=== PATIENT | female | born 1955 | race Two or more races ===

== ENCOUNTER → 2018-01-06 | Outpatient (CLI) | payer OTHER ==
[2015-12-15 07:57] VITALS: BP 177/73
[~2018-01-06] MED LIST: CALC-74 PO; METF10007 PO
--- NOTE | 2018-01-07 10:28 | RAD ---
DATE: 01/06/2018 EXAM: DIGITAL SCREEN BILAT W/CAD HISTORY: Routine screening COMPARISON: 10/07/2016 This study was interpreted with the benefit of Computerized Aided Detection (CAD). Breast Density: FATTY The breast parenchyma is primarily fatty replaced. Breast parenchyma level density A. FINDINGS: There is an unchanged oval-shaped 2.6 cm mass in the lateral aspect of the right breast. No new or enlarging breast densities are seen. No suspicious microcalcifications are evident. IMPRESSION: Stable mammograms without evidence of malignancy. BI-RADS CATEGORY: 2 BENIGN FINDING(S) RECOMMENDED FOLLOW-UP: 12M 12 MONTH FOLLOW-UP PQRS compliance statement: Patient information was entered into a reminder system with a target due date for the next mammogram. Mammography is a sensitive method for finding small breast cancers, but it does not detect them all and is not a substitute for careful clinical examination. A negative mammogram does not negate a clinically suspicious finding and should not result in delay in biopsying a clinically suspicious abnormality. "Our facility is accredited by the [employer] Mammography [employer]."
== END | disposition home or self-care (01) ==
LOC: MAMMO 14:41
PROVIDERS: ATTEND Family Medicine
DX: Z12.31 Encounter for screening mammogram for malignant neoplasm of breast (principal)
CPT/HCPCS: 77067

== ENCOUNTER → 2018-09-22 | Outpatient (CLI) | payer OTHER ==
[2015-12-15 07:57] VITALS: BP 177/73
--- NOTE | 2018-09-22 15:06 | RAD ---
MR#: [id number] Date of Study: 09/22/2018 Ordering Physician: CHARLES DIAZ, Referring Physician: CHARLES DIAZ, Tech: AMAIRANI Issa, RDMS, RVT APPROVED REPORT Patient Location : OUT-PATIENT Indications Lower Extremity Pain : Bilateral Lower Extremity Edema : Bilateral Varicose Veins Risk Factors Obesity Greater Saphenous Veins (GSV) Significant venous relux noted in the LEFT GSV at the following levels : Superficial Femoral Junction Findings Grayscale images of the bilateral saphenofemoral junctions do not reveal any obvious evidence of thro mbus. The right great saphenous vein was not visualized. There are multiple venous varicosities along the right medial aspect of the thigh and calf. There is reflux noted in the superficial varicosities at approximately 2.5 seconds. There is significant edema limiting the study. The left great saphenous vein measures approximate 4.6 mm and has a reflux time of 2.4 seconds. Signi ficant edema is also noted again on the left side. Multiple superficial varicosities noted on the left side with positive spectral and color Doppler jennifer dence of reflux. Technically limited study due to large body habitus and significant lower ext edema. Bilateral lesser saphenous veins do not show any evidence of reflux. Critical Notification Critical Value: No <Conclusion> 1. Positive for reflux in the left great saphenous vein. 2. Multiple bilateral superficial venous varicosities noted with reflux of 2.5 seconds 3. Right great saphenous vein not well visualized. Signed by : Charles Diaz, Electronically Approved : 09/22/2018 15:05:20
== END | disposition home or self-care (01) ==
LOC: US 12:30
PROVIDERS: ATTEND Internal Medicine Cardiovascular Disease
DX: I83.893 Varicose veins of bilateral lower extremities with other complications (principal); I87.2 Venous insufficiency (chronic) (peripheral)
CPT/HCPCS: 93925; 93970

== ENCOUNTER → 2018-12-17 | Outpatient (CLI) | payer OTHER ==
[2015-12-15 07:57] VITALS: BP 177/73
[~2018-12-17] MED LIST changes: +PERFLUTREN PROTEIN-A MICROSPHR 0.22 MG/ML 3 ML VIAL. IV ONE
--- NOTE | 2018-12-17 12:20 | CARD ---
MR#: [id number] Date of Study: 12/17/2018 Ordering Physician: CHARLES DIAZ, Referring Physician: CHARLES DIAZ, Tech: Frida Montiel [facility] APPROVED REPORT EXAM: Two-dimensional and M-mode echocardiogram with Doppler and color Doppler. Other Information Quality : Technically LimitedHR: 65bpm Rhythm : NSRTechnically limited study due to body habitus. INDICATION Dyspnea Echo Enhancing Agent Indication: Endocardial border delineation Agent/Amount Used: Optison 1mL 2D DIMENSIONS Left Atrium(2D)4.4 (1.6-4.0cm)LVOT Diameter1.9 (1.8-2.4cm) Aortic Valve AoV Peak Van.132.0cm/sAoV VTI30.8cm AO Peak GR.7.0mmHgLVOT Peak Van.90.0cm/s LVOT VTI 23.16cmAO Mean GR.5mmHg REGGIE (VMAX)1.32cs8UNS (VTI)2.10cm2 Mitral Valve MV E Cmfrajeg84.6cm/sMV DECEL [id number] MV A Gjxdsukj89.8cm/sMV QIV76vs E/A Ratio0.9MVA (PHT)4.16cm2 Pulmonary Valve PV Peak Vrdlvhrn13.9cm/sPV Peak Grad.2mmHg Pulmonary Vein S1 Wdznzwtu42.3cm/sD2 Xqxpttup07.7cm/s PVa [id number] LEFT VENTRICLE The left ventricle is normal size. There is normal left ventricular wall thickness. The left ventricu lar systolic function is normal. The Ejection Fraction is 55-60%. Unable to accurately access regiona l wall motion abnormalities with technically difficult exam. Transmitral Doppler flow pattern is Grad e I-abnormal relaxation pattern. RIGHT VENTRICLE The right ventricle is normal size. There is normal right ventricular wall thickness. The right ventr icular systolic function is normal. ATRIA The left atrium is mildly dilated. The right atrium size is normal. The interatrial septum is intact with no evidence for an atrial septal defect or patent foramen ovale as noted on 2-D or Doppler imagi ng. AORTIC VALVE The aortic valve is not well visualized. Doppler and Color Flow revealed no significant aortic regurg itation. There is no significant aortic valvular stenosis. MITRAL VALVE The mitral valve is normal in structure and function. There is no evidence of mitral valve prolapse. There is no mitral valve stenosis. Doppler and Color-flow revealed trace mitral regurgitation. TRICUSPID VALVE The tricuspid valve is normal in structure and function. Doppler and Color Flow revealed no tricuspid valve regurgitation noted. There is no tricuspid valve prolapse or vegetation. PULMONIC VALVE The pulmonic valve is not well visualized. GREAT VESSELS The aortic root is normal in size. The ascending aorta is normal in size. The IVC was not visualized. PERICARDIAL EFFUSION There is no evidence of significant pericardial effusion. Critical Notification Critical Value: No <Conclusion> The left ventricular systolic function is normal. The Ejection Fraction is 55-60%. Transmitral Doppler flow pattern is Grade I-abnormal relaxation pattern. Trace mitral regurgitation. There is no evidence of significant pericardial effusion. Signed by : Javon Mcmillan, Electronically Approved : 12/17/2018 12:20:17
== END ==
LOC: ECHO 10:15
PROVIDERS: ATTEND Internal Medicine Cardiovascular Disease
DX: I34.0 Nonrheumatic mitral (valve) insufficiency (principal); I50.30 Unspecified diastolic (congestive) heart failure
CPT/HCPCS: C8929; Q9956

== ENCOUNTER → 2019-01-13 | Outpatient (CLI) | payer OTHER ==
[2015-12-15 07:57] VITALS: BP 177/73
[~2019-01-13] MED LIST changes: -PERFLUTREN PROTEIN-A MICROSPHR 0.22 MG/ML 3 ML VIAL. IV ONE
--- NOTE | 2019-01-14 15:38 | RAD ---
DATE: 01/13/2019 EXAM: DIGITAL SCREEN BILAT W/CAD HISTORY: Routine screening COMPARISON: 10/07/2017, 01/06/2018 mammographic exams This study was interpreted with the benefit of Computerized Aided Detection (CAD). Breast Density: SCATTERED The breast parenchyma shows scattered fibroglandular densities. Breast parenchyma level B. FINDINGS: Mass involving the right upper-outer breast is stable. No suspicious calcifications or distortion. No new mass. IMPRESSION: Stable BI-RADS CATEGORY: 1 NEGATIVE RECOMMENDED FOLLOW-UP: 12M 12 MONTH FOLLOW-UP PQRS compliance statement: Patient information was entered into a reminder system with a target due date for the next mammogram. Mammography is a sensitive method for finding small breast cancers, but it does not detect them all and is not a substitute for careful clinical examination. A negative mammogram does not negate a clinically suspicious finding and should not result in delay in biopsying a clinically suspicious abnormality. "Our facility is accredited by the [employer] Mammography Program."
== END | disposition home or self-care (01) ==
LOC: MAMMO 12:17
PROVIDERS: ATTEND Family Medicine
DX: Z12.31 Encounter for screening mammogram for malignant neoplasm of breast (principal); N63.11 Unspecified lump in the right breast, upper outer quadrant
CPT/HCPCS: 77067

== ENCOUNTER → 2019-05-13 | Outpatient (CLI) | payer OTHER ==
[2015-12-15 07:57] VITALS: BP 177/73
--- NOTE | 2019-05-14 08:36 | RAD ---
EXAM: Lumbar spine, 3 views. HISTORY: Pain. COMPARISON: 11/28/2015. FINDINGS: 3 views of the lumbar spine are obtained. There is grade 1 anterolisthesis of L5 on S1. There is degenerative endplate remodeling and facet arthropathy at all levels. There is slight disc space narrowing predominantly at L3-L4. IMPRESSION: 1. Multilevel degenerative change involving the lumbar spine. 2. Grade 1 anterolisthesis of L5 on S1. Electronically signed by: Hazel Jacinto MD (05/14/2019 8:33 AM) [id number]
== END | disposition home or self-care (01) ==
LOC: RAD 16:18
PROVIDERS: ATTEND Family Medicine
DX: M47.816 Spondylosis without myelopathy or radiculopathy, lumbar region (principal); M48.061 Spinal stenosis, lumbar region without neurogenic claudication
CPT/HCPCS: 72100

== ENCOUNTER → 2020-04-05 | Outpatient (CLI) | payer OTHER ==
[2015-12-15 07:57] VITALS: BP 177/73
--- NOTE | 2020-04-05 21:44 | KCIC ---
C-spine 4 views INDICATION: Neck pain and right radiculopathy. TECHNIQUE: AP, odontoid view, lateral view and swimmer's lateral views of the cervical spine were obt ained. FINDINGS: Anatomic alignment of the cervical spine with normal. No acute fracture or aggressive appearing bony lesions are seen. There is ossification along the anterior longitudinal ligament bridging C4 and C5. Disc spaces are preserved. Facets are in anatomic alignment. Lateral masses of C1 appear to align hank ropriately on C2 on the open mouth odontoid view. Soft tissues show mild fullness in the prevertebral soft tissues at the C5-C6 level, nonspecific. Otherwise they are unremarkable. 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 No fracture, malalignment or aggressive bony les ions seen. If more detailed evaluation is desired, soft tissue neck with IV contrast or a C-spine MRI could be considered in further evaluation. Electronically signed by: Sharifa Larson MD (04/05/2020 9:42 PM) [facility] [place]
== END ==
LOC: KCIC 15:43
PROVIDERS: ATTEND Family Medicine
DX: M54.12 Radiculopathy, cervical region (principal); M54.2 Cervicalgia
CPT/HCPCS: 72040

== ENCOUNTER → 2020-06-30 | Outpatient (CLI) | payer OTHER ==
[2015-12-15 07:57] VITALS: BP 177/73
--- NOTE | 2020-06-30 16:42 | KCIC ---
EXAM: Lumbar spine MRI without contrast. HISTORY: Pain. TECHNIQUE: Multiplanar, multisequence magnetic resonance imaging of the lumbar spine was performed wi thout contrast. COMPARISON: None. FINDINGS: There is a transitional lumbosacral segment. This considered S1 for this dictation. There i s a rudimentary disc at S1-S2. There is mild lumbar hyperlordosis. There is minimal grade 1 anterolis thesis of L4 on L5 and L5 on S1, measuring 2 mm. There is degenerative endplate remodeling with disc space narrowing and osteophytosis primarily at L3-L4. There are endplate Schmorl's nodes at L3-L4 and L4-L5. There is no fracture or suspicious osseous lesion. The conus terminates at L1. There is a sma ll right renal cyst, partially included on the [id number]-ss-omgi. Follow up is not routinely performed fo r simple cysts. At L1-L2, there is no stenosis. At L2-L3, there is a disc bulge and endplate remodeling. There is mild bilateral facet arthropathy. T here is hypertrophy of the ligamentum flavum. There is minimal central canal stenosis. At L3-L4, there is a shallow broad-based left paracentral to foraminal disc protrusion superimposed o n a disc bulge and left lateral predominant endplate remodeling. There is mild right and moderate lef t facet arthropathy. There is hypertrophy of the ligamentum flavum. There is mild central canal steno sis and narrowing of the left lateral recess with abutment of the traversing left L4 nerve root. At L4-L5, there is a disc bulge and endplate remodeling. There is mild bilateral facet arthropathy. T here is mild left foraminal stenosis. At L5-S1, there is endplate remodeling. There is mild bilateral facet arthropathy. There is no stenos is. IMPRESSION: Multilevel degenerative change involving the lumbar spine, described in detail above. Thi s is associated with minimal central canal stenosis at L2-L3, mild central canal stenosis and narrowi ng of the left lateral recess with abutment the traversing left L4 nerve root at L3-L4, and mild left foraminal stenosis at L4-L5. Electronically signed by: Hazel Jacinto MD (06/30/2020 4:39 PM) [id number]
== END ==
LOC: KCIC MRI 12:44
PROVIDERS: ATTEND Family Medicine
DX: M47.27 Other spondylosis with radiculopathy, lumbosacral region (principal); R29.898 Other symptoms and signs involving the musculoskeletal system
CPT/HCPCS: 72148

== ENCOUNTER → 2020-09-22 | Outpatient (CLI) | payer OTHER ==
[2015-12-15 07:57] VITALS: BP 177/73
--- NOTE | 2020-09-22 13:35 | PDOC1 ---
INITIAL PAIN CONSULT DATE OF SERVICE: DOS: DATE: 09/22/20 TIME: 13:29 CHIEF COMPLAINT: Chief Complaint: Low back and left lower extremity pain HISTORY OF PRESENT ILLNESS: 65-year-old female presents for evaluation of low back and left lower extremity pain for many years worse over the past 6 months or so not the result of any specific injury or accident that she is aware of is getting worse with activity and walking and standing. Patient reports pain the low back rating to left lower extremity posterior gluteus lateral thigh anterior thigh medial thigh some in the groin and the medial lower leg as well patient reports is worse with walking standing bending stooping changing positions or lifting items. Patient reports better with sitting or laying down but still painful and wakes her from sleep least once or twice a night. Patient reports is not effective bowel bladder control does affect her ability to walk more than about 5 to 10 minutes standing on her feet becomes much more difficult. Patient scribes the pain is constant aching shooting and stabbing in the left lower extremity and again worse with ambulation. Patient has report injections from her PMR physician and therapy exercises and also doing stretching and strengthening on her own but is not decreasing the pain significantly. Patient is currently taking [id number] Tylenol without significant reduction in pain as well. Patient reports a loss of motor function with significant fatigability of the left lower extremity with walking and standing. Patient did have an MRI scan of the lumbar spine showing multilevel degenerative changes worse at L3-4 with a shallow broad-based left paracentral to foraminal disc protrusion and disc bulge superimposed with mild central canal stenosis and narrowing the left lateral recess with abutment of the traversing left L4 nerve root. PAST MEDICAL HISTORY: PMH: Type 2 diabetes, obesity PREVIOUS SURGERIES: Past Surgical Hx: Cholecystectomy, ectopic CURRENT MEDICATIONS: Current Meds: Active Scripts Medications Dose Route/Sig Max Daily Dose Days Date Category Metformin Hcl 1,000 Mg Tablet 1 Tab PO BID 12/15/15 Reported Antacid Chewable Tablet (Calcium Carbonate/Mag Hydrox) 1 Each Tab.chew 1 Each PO PRN 12/15/15 Reported ALLERGIES; Allergies: Coded Allergies: No Known Drug Allergies (Unverified , 12/15/15) FAMILY HISTORY: Family Hx: No major medical problems or conditions that she is aware of. SOCIAL HISTORY: Social Hx: Patient drinks alcohol only rarely, does not smoke, does not use any illegal illicit recreational drugs is with her spouse works as a db2 developer and lives locally in [facility]. REVIEW OF SYSTEMS: ROS: Positive for those items mentioned in history of present illness, all systems are reviewed, otherwise negative ,and are complete full and well-documented on patient's chart. PHYSICAL EXAM: VS: Blood pressure is 123/66 pulse 73 respirations which is 98.2 F height 5 feet 2 inches weight 294 pounds PE: PHYSICAL EXAMINATION: GENERAL: The patient is awake, alert, oriented, appropriate, very pleasant demeanor HEENT: Shows normocephalic, atraumatic. Extraocular movements are intact and symmetrical. Oral cavity: Mucous membranes moist and pink. Dentition is intact. NECK: Shows anterior throat supple without palpable lymphadenopathy noted. Swallow reflex symmetrical. CHEST: Shows normal on inspection. Breath sounds are clear bilaterally, distant but no rales or rhonchi. HEART: Shows S1, S2 clear. No murmurs auscultated. ABDOMEN: Soft, nontender, nondistended, obese. No palpable organomegaly is noted. No rebound or guarding demonstrated. BACK: Shows spine grossly in the midline. Normal-appearing cervical lordotic curvature. There is slightly increased thoracic kyphosis, some minor flattening of the lumbar lordotic curvature. Lumbar paraspinous muscles show symmetrical on inspection, on palpation shows some moderate tenderness diffusely throughout the upper, middle and lower distribution of the paraspinous muscles bilaterally and also into the lower thoracic paraspinous musculature, firm and tender, but without specific trigger points, without radiation of pain. The patient has good rotational motion of the lumbar spine, both laterally as well as extension and flexion without significant difficulty. No tenderness over the spinous processes, sacrum or sacroiliac regions. EXTREMITIES: Lower extremities show deep tendon reflexes 1 in the patellar and tendo calcaneus tendons. Motor exam is 5 on a scale of 5 with right dorsiflexion, extension, quadriceps and hamstring flexion and 4/5 on the left. Peripheral pulses are 1+ posterior tibial. No peripheral edema is noted bilaterally. Lower extremities are warm and dry to touch, equal in color and appearance. Straight leg raise noted to be positive on the left at approximate 35 degrees, decreased with knee flexion, right side is negative. Gaenslen's and Zackery's maneuvers are negative bilateral as well. The patient is able to stand, stand her toes that significant difficulty does favor the left lower extremity with ambulation not use any assistive devices however. SKIN: Shows warm and dry, good turgor. No edema. No sores, rashes or bruising throughout. IMPRESSION: Impression: 65-year-old female with long history low back and left lower extremity pain and radicular fashion MRI scan lumbar spine as noted Obesity Diabetes Plan: Options discussed the patient including continued physical therapy was medication management and interventional techniques. Patient would like to proceed interventional techniques as she is seen physical medicine rehab and is doing exercises currently. We discussed a lumbar epidural steroid injections description as well as anatomical models to describe the procedure. Patient will wait for preauthorization with insurance provider have her return for a translaminar approach L3-4 level lumbar epidural steroid injection with fluoroscopic guidance. In the meantime, patient to continue with stretching strength exercise as well as oral analgesics as currently. NING STUART MD Sep 22, 2020 13:35
== END | disposition home or self-care (01) ==
LOC: PNCL 09:17
PROVIDERS: ATTEND Anesthesiology
DX: M54.5 Low back pain (principal); M79.605 Pain in left leg; E11.9 Type 2 diabetes mellitus without complications; E66.9 Obesity, unspecified; M19.90 Unspecified osteoarthritis, unspecified site; I10 Essential (primary) hypertension; Z90.49 Acquired absence of other specified parts of digestive tract; Z98.890 Other specified postprocedural states; Z79.899 Other long term (current) drug therapy
CPT/HCPCS: G0463

== ENCOUNTER → 2020-10-06 | Outpatient (CLI) | payer OTHER ==
[2015-12-15 07:57] VITALS: BP 177/73
--- NOTE | 2020-10-06 08:51 | RAD ---
EXAM: Abdomen sonogram. HISTORY: Pain. TECHNIQUE: Sonographic imaging of the abdomen was performed. COMPARISON: None. FINDINGS: The exam is limited due to patient body habitus and bowel gas. The liver is normal in size. There is hepatic steatosis. No focal hepatic lesion is seen. The gallbladder is surgically absent. T he common bile duct is normal in caliber. The kidneys are normal in size. There is a 2.1 cm simple ap pearing right renal cyst. Follow-up is not routinely performed for simple cysts. The spleen is normal in size. The pancreas is predominantly obscured due to bowel gas. The aorta is normal in caliber. Th e inferior vena cava is patent. IMPRESSION: 1. Hepatic steatosis. 2. 2.1 cm simple appearing right renal cyst. 3. Surgically absent gallbladder. Electronically signed by: Hazel Jacinto MD (10/06/2020 8:49 AM) [id number]
== END ==
LOC: US 06:19
PROVIDERS: ATTEND Family Medicine
DX: K76.0 Fatty (change of) liver, not elsewhere classified (principal); Z90.49 Acquired absence of other specified parts of digestive tract
CPT/HCPCS: 76700

== ENCOUNTER → 2020-10-13 | Outpatient (CLI) | payer OTHER ==
[2015-12-15 07:57] VITALS: BP 177/73
[~2020-10-13] MED LIST changes: +IOHEXOL 180 MG/ML 10 ML VIAL. ONE; +methylPREDNISolone ACETATE 40 MG/ML VIAL. ONE; +methylPREDNISolone ACETATE 80 MG/ML VIAL. ONE
--- NOTE | 2020-10-13 09:53 | PDOC ---
Progress Note - Pain Clinic Date of Service: DOS: DATE: 10/13/20 TIME: 09:51 Diagnosis: Dx: Lumbar radiculopathy with lumbar degenerative disease and lumbar spinal stenosis History or Present Illness: HPI: 65-year-old female returns for follow-up status post initial evaluation returning with complaints of low back and left lower extremity pain in the posterior gluteus posterior lateral thigh posterior anterior thigh anteromedial thigh into the medial knee patient reports is worse with walking standing changing positions rates it as severe tingling and dull in the leg but aching and burning in the low back patient reports a 10 on scale 10 at its worst over the past week 10 on average and a 5 and his least and is a 10 today. Patient reports no new motor or sensory deficits worse with change positions generally awakens her from sleep about once or twice every night patient reports no bowel or bladder incontinence as well. Physical Exam: VS: Blood pressure is 125/69 pulse 67 respirations 18 temperature 98.3 F weight is 298 pounds PE: PHYSICAL EXAMINATION: GENERAL: The patient is awake, alert, oriented, appropriate, very pleasant in demeanor HEENT: Shows normocephalic, atraumatic. Extraocular movements are intact and symmetrical. Oral cavity: Mucous membranes moist and pink. Dentition is intact. NECK: Shows anterior throat supple without palpable lymphadenopathy noted. Swallow reflex symmetrical. CHEST: Shows normal on inspection. Breath sounds are clear bilaterally, distant but no rales or rhonchi. HEART: Shows S1, S2 clear. No murmurs auscultated. ABDOMEN: Soft, nontender, nondistended, obese. No palpable organomegaly is noted. BACK: Shows spine grossly in the midline. Normal-appearing cervical lordotic curvature. There is slightly increased thoracic kyphosis, some minor flattening of the lumbar lordotic curvature. Lumbar paraspinous muscles show symmetrical on inspection, on palpation shows some moderate tenderness diffusely throughout the upper, middle and lower distribution of the paraspinous muscles without specific trigger points, without radiation of pain. The patient has good rotat ional motion of the lumbar spine, both laterally as well as extension and flexion without significant difficulty. EXTREMITIES: Lower extremities show deep tendon reflexes 1+ in the patellar and tendo calcaneus tendons. Motor exam is 4 on a scale of 5 with right dorsiflexion, extension, quadriceps and hamstring flexion and 5/5 on the left. Peripheral pulses are 1 posterior tibial. No peripheral edema is noted bilaterally. Lower extremities are warm and dry to touch, equal in color and appearance. SKIN: Shows warm and dry, good turgor. No edema. No sores, rashes or bruising throughout. Procedure: Procedure: Options were discussed with the patient. Patient's old chart was reviewed as her current medication regimen updated current review of systems updated today as well. We will proceed with a lumbar epidural steroid injection stable fluoroscopic guidance. Risks were discussed including but not limited to: Bleeding, infection, possibility of epidural hematoma and subsequent neurological compromise, dural puncture, headaches, spinal cord and/or nerve damage, side effects of steroid medication, and poor results regarding pain control. Patient understands and wished to proceed. Patient return to the clinic in approximate 2 weeks for follow-up, was counseled as return appointment activity level and side effects to be aware of. Medication Injected: Med Injected: Procedure is lumbar epidural steroid injection under local anesthetic using sterile prep and drape at the L3-4 level using C-arm fluoroscopic guidance in both AP and lateral views medications injected is 120 mg Depo-Medrol +10mL preservative-free normal saline and 2 mL contrast- condition at discharge is stable patient tolerated procedure well had no complications. Condition at Discharge: Condition at Discharge: Condition at discharge stable, patient already the procedure well and had no complications. NING STUART MD Oct 13, 2020 09:53
--- NOTE | 2020-10-13 09:54 | PDOC4 ---
Procedure Note: ICD 10 Code: ICD 10 Code: M51.16 M4 8.07 Procedure Note: Patient was consented for lumbar epidural steroid injection with fluoroscopic guidance. Risks were discussed including but not limited to: Bleeding, infection, possibility of epidural hematoma and subsequent neurological compromise, dural puncture, headaches, spinal cord and/or nerve damage, side effects of steroid medication, and poor results regarding pain control. Patient understands and wished to proceed. Procedure is lumbar epidural steroid injection under local anesthetic using sterile prep and drape at the L3-4 level using C-arm fluoroscopic guidance in both AP and lateral views medications injected is 120 mg Depo-Medrol +10mL preservative-free normal saline and 2 mL contrast- condition at discharge is stable patient tolerated procedure well had no complications. NING STUART MD Oct 13, 2020 09:54
== END | disposition home or self-care (01) ==
LOC: PNCL 08:54
PROVIDERS: ATTEND Anesthesiology
DX: M51.16 Intervertebral disc disorders with radiculopathy, lumbar region (principal); M48.061 Spinal stenosis, lumbar region without neurogenic claudication; I10 Essential (primary) hypertension; M19.90 Unspecified osteoarthritis, unspecified site; Z79.899 Other long term (current) drug therapy; Z98.890 Other specified postprocedural states
CPT/HCPCS: 62323; J1030; J1040; Q9965

== ENCOUNTER → 2020-11-16 | Outpatient (CLI) | payer OTHER ==
[2015-12-15 07:57] VITALS: BP 177/73
[~2020-11-16] MED LIST changes: -IOHEXOL 180 MG/ML 10 ML VIAL. ONE; -methylPREDNISolone ACETATE 40 MG/ML VIAL. ONE; -methylPREDNISolone ACETATE 80 MG/ML VIAL. ONE
--- NOTE | 2020-11-16 11:23 | PDOC ---
Progress Note - Pain Clinic Date of Service: DOS: DATE: 11/16/20 TIME: 11:20 Diagnosis: Dx: Lumbar radiculopathy with lumbar degenerative disease and lumbar spinal stenosis History or Present Illness: HPI: 65-year-old female returns for follow-up status post lumbar posterior injection x1. Patient reports about 50% improvement in the low back and left lower extremity pain only for about 2 weeks patient reports pain is returning fairly significantly this week in the low back and left leg posterior gluteus posterior lateral thigh anterior thigh anteromedial thigh medial knee and medial lower leg as well patient reports is much more tender in the "hip" on the left side with walking standing initially she did much better with distance walking doing household activities work activities travel with greater ease sleeping better at night now is bending wake her from sleep about every 6-8 hours patient rates her pain as 8 on scale 10 is worse over the past week 8 on average 8 its least and is an 8 today. Patient reports no new motor or sensory deficits no bowel or bladder incontinence. Physical Exam: VS: Blood pressure is 179/81 pulse 81 respirations 18 weight is 293 pounds PE: PHYSICAL EXAMINATION: GENERAL: The patient is awake, alert, oriented, appropriate, very pleasant in demeanor HEENT: Shows normocephalic, atraumatic. Extraocular movements are intact and symmetrical. Oral cavity: Mucous membranes moist and pink. Dentition is intact. NECK: Shows anterior throat supple without palpable lymphadenopathy noted. Swallow reflex symmetrical. CHEST: Shows normal on inspection. Breath sounds are clear bilaterally, distant but no rales or rhonchi. HEART: Shows S1, S2 clear. No murmurs auscultated. ABDOMEN: Soft, nontender, nondistended, obese. No palpable organomegaly is noted. BACK: Shows spine grossly in the midline. Normal-appearing cervical lordotic curvature. There is increased thoracic kyphosis, some minor flattening of the lumbar lordotic curvature. Lumbar paraspinous muscles show symmetrical on inspection, on palpation shows some moderate tenderness diffusely throughout the upper, middle and lower distribution of the paraspinous muscles, but without specific trigger points, without radiation of pain. The patient has good rotational motion of the lumbar spine, both laterally as well as extension and flexion without significant difficulty. No tenderness over the spinous processes, sacrum or sacroiliac regions. EXTREMITIES: Lower extremities show deep tendon reflexes 1 in the patellar and tendo calcaneus tendons. Motor exam is 4 on a scale of 5 with right dorsiflexion, extension, quadriceps and hamstring flexion and 5/5 on the left. Peripheral pulses are 1+ posterior tibial. No peripheral edema is noted bilaterally. Lower extremities are warm and dry to touch, equal in color and appearance. SKIN: Shows warm and dry, good turgor. No edema. No sores, rashes or bruising throughout. Procedure: Procedure: Options discussed with patient. Patient chart reviews her current medication regimen updated current review of systems updated today as well. We will preauthorize patient for second lumbar epidural steroid injection as she did very well with the first but the pain returning fairly significantly in the left lower extremity. Patient continues to have a clinical radiculopathy in the L3-4 dermatomal distribution on the left side. We will prescribe Medrol Dosepak, patient was given instructions well side effects beware with the medication. Patient return to clinic once approved for translaminar approach L3-4 level lumbar epidural steroid injection with fluoroscopic guidance at that time. Medication Injected: Med Injected: None Condition at Discharge: Condition at Discharge: Condition at discharge is stable. NING STUART MD Nov 16, 2020 11:23
== END | disposition home or self-care (01) ==
LOC: PNCL 10:25
PROVIDERS: ATTEND Anesthesiology
DX: M51.16 Intervertebral disc disorders with radiculopathy, lumbar region (principal); M48.061 Spinal stenosis, lumbar region without neurogenic claudication; I10 Essential (primary) hypertension; M19.90 Unspecified osteoarthritis, unspecified site; Z79.899 Other long term (current) drug therapy; Z79.84 Long term (current) use of oral hypoglycemic drugs
CPT/HCPCS: 99212; G0463

== ENCOUNTER → 2020-11-30 | Outpatient (CLI) | payer OTHER ==
[2015-12-15 07:57] VITALS: BP 177/73
[~2020-11-30] MED LIST changes: +ALLO100T PO; +ATOR20TA58 PO; +IOHEXOL 180 MG/ML 10 ML VIAL. ONE; +LEVO125T5 PO; +MELO15TA6 PO; +OMEP20CA16 PO; +TIZA4TAB8 PO; +methylPREDNISolone ACETATE 80 MG/ML VIAL. ONE
--- NOTE | 2020-11-30 11:15 | PDOC ---
Progress Note - Pain Clinic Date of Service: DOS: DATE: 11/30/20 TIME: 11:12 Diagnosis: Dx: Lumbar radiculopathy with lumbar degenerative disease and lumbar spinal stenosis History or Present Illness: HPI: 65-year-old female returns for follow-up status post lumbar epidural steroid traction x1 with about 50% improvement after the first injection patient reports still significant pain the low back left lower extremity posterior gluteus posterior lateral thigh lateral anterior thigh anteromedial thigh medial lower leg as well. Patient reports initially she was doing much better distance walking doing household activities with greater ease and comfort work activities try with greater ease as well and sleeping better at night now the pain is returned the pain is waking her from sleep about 2-3 times a night rates a 9 on scale 10 is worst average and least and is a 9 today patient ports constant severe sharp aching dull tight shooting in the left leg. Patient reports some instability with her left leg since her last visit and feels some increased weakness but no actual falls but she feels like she has stumbled several times by her report. Patient reports no bowel or bladder incontinence. Physical Exam: VS: Blood pressure is 147/80 pulse 71 respirations 18 temperature 98.2 F weight is 297 pounds. PE: PHYSICAL EXAMINATION: GENERAL: The patient is awake, alert, oriented, appropriate, very pleasant in demeanor HEENT: Shows normocephalic, atraumatic. Extraocular movements are intact and symmetrical. Oral cavity: Mucous membranes moist and pink. Dentition is intact. NECK: Shows anterior throat supple without palpable lymphadenopathy noted. Swallow reflex symmetrical. CHEST: Shows normal on inspection. Breath sounds are clear bilaterally, distant but no rales rhonchi or wheezes auscultated. HEART: Shows S1, S2 clear. No murmurs auscultated. ABDOMEN: Soft, nontender, nondistended, obese. No palpable organomegaly is noted. BACK: Shows spine grossly in the midline. Normal-appearing cervical lordotic curvature. There is increased thoracic kyphosis, some flattening of the lumbar lordotic curvature. Lumbar paraspinous muscles show symmetrical on inspection, on palpation shows some moderate tenderness diffusely throughout the upper, middle and lower distribution of the paraspinous muscles, but without specific trigger points, without radiation of pain. The patient has good rotational motion of the lumbar spine, both laterally as well as extension and flexion without significant difficulty. EXTREMITIES: Lower extremities show deep tendon reflexes 1+ in the patellar and tendo calcaneus tendons. Motor exam is 5 on a scale of 5 with right dorsiflexion, extension, quadriceps and hamstring flexion and 4/5 on the left. Peripheral pulses are 1 posterior tibial. No peripheral edema is noted bilaterally. Lower extremities are warm and dry to touch, equal in color and appearance. SKIN: Shows warm and dry, good turgor. No edema. No sores, rashes or bruising throughout. Procedure: Procedure: Options were discussed with patient. Patient chart reviews her current medication regimen updated current review of systems updated today as well. We will proceed with a lumbar epidural steroid injection today with fluoroscopic guidance. Risks were discussed including but not limited to: Bleeding, infection, possibility of epidural hematoma and subsequent neurological compromise, dural puncture, headaches, spinal cord and/or nerve damage, side effects of steroid medication, and poor results regarding pain control. Patient understands and wished to proceed. Patient will return to the clinic in approximate 2 weeks for follow-up, was counseled return appointment, activity level, and side effects beware of. Medication Injected: Med Injected: Procedure is lumbar epidural steroid injection under local anesthetic using sterile prep and drape at the L4-5 level using C-arm fluoroscopic guidance in both AP and lateral views medications injected is 120 mg Depo-Medrol +10mL preservative-free normal saline and 2 mL contrast- condition at discharge is stable patient tolerated procedure well had no complications. Condition at Discharge: Condition at Discharge: Condition at discharge stable, patient already the procedure well and had no complications. NING STUART MD Nov 30, 2020 11:15
--- NOTE | 2020-11-30 11:16 | PDOC4 ---
Procedure Note: ICD 10 Code: ICD 10 Code: M54.16 M4 8.06 M51.36 Procedure Note: Patient was consented for lumbar epidural steroid injection with fluoroscopic guidance. Risks were discussed including but not limited to: Bleeding, infection, possibility of epidural hematoma and subsequent neurological compromise, dural puncture, headaches, spinal cord and/or nerve damage, side effects of steroid medication, and poor results regarding pain control. Patient understands and wished to proceed. Procedure is lumbar epidural steroid injection under local anesthetic using monet rile prep and drape at the L4-5 level using C-arm fluoroscopic guidance in both AP and lateral views medications injected is 120 mg Depo-Medrol +10mL preservative-free normal saline and 2 mL contrast- condition at discharge is stable patient tolerated procedure well had no complications. NING STUART MD Nov 30, 2020 11:16
== END | disposition home or self-care (01) ==
LOC: PNCL 10:31
PROVIDERS: ATTEND Anesthesiology
DX: M51.16 Intervertebral disc disorders with radiculopathy, lumbar region (principal); M48.061 Spinal stenosis, lumbar region without neurogenic claudication; I10 Essential (primary) hypertension; M19.90 Unspecified osteoarthritis, unspecified site; Z79.84 Long term (current) use of oral hypoglycemic drugs; Z79.899 Other long term (current) drug therapy; Z98.890 Other specified postprocedural states
CPT/HCPCS: 62323; J1040; Q9965

== ENCOUNTER → 2021-02-14 | Outpatient (CLI) | payer OTHER ==
[2015-12-15 07:57] VITALS: BP 177/73
[~2021-02-14] MED LIST changes: -IOHEXOL 180 MG/ML 10 ML VIAL. ONE; -methylPREDNISolone ACETATE 80 MG/ML VIAL. ONE
--- NOTE | 2021-02-14 11:48 | PDOC ---
Progress Note - Pain Clinic Date of Service: DOS: DATE: 02/14/21 TIME: 11:37 Diagnosis: Dx: Lumbar radiculopathy with lumbar degenerative disease and lumbar spinal stenosis History or Present Illness: HPI: 66-year-old female returns for follow-up status post lumbar epidural steroid injections last seen November 30, 2020. Patient reports she did very well with at least a 50% improvement for 3 months before the pain returned now is returning in the low back and the bilateral lower extremities worse on the left than the right in the posterior gluteus and posterior thigh some on the right but only in the back itself not into the leg patient reports the left leg is shooting into the left lateral thigh anterior thigh medial thigh and some on the anterior aspect of the knee on the left side as well patient reports worse with walking standing bending stooping lifting items patient rates as a 10 on scale 10 at all times worst least and average and is a 10 today patient describes it as severe sharp and aching in the back burning and stabbing shooting in the leg patient reports no loss of motor function initially doing much better with distance walking doing household activities work activities patient reports that wakes her from sleep about every 3-4 hours each night patient reports no bowel or bladder incontinence no loss of motor function but significant fatigability of the lower extremities she the left leg with standing and changing positions. Patient continues walking daily as well as doing stretching strengthening exercises from previous physical therapy instruction but only with minimal decrease in pain. Physical Exam: VS: Blood pressure is 178/89 pulse 71 respirations 18 temperature 98.2 F height is 5 feet 2 inches weight is 304 pounds PE: PHYSICAL EXAMINATION: GENERAL: The patient is awake, alert, oriented, appropriate, very pleasant in demeanor HEENT: Shows normocephalic, atraumatic. Extraocular movements are intact and symmetrical. Oral cavity: Mucous membranes moist and pink. Dentition is intact. NECK: Shows anterior throat supple without palpable lymphadenopathy noted. Swallow reflex symmetrical. CHEST: Shows normal on inspection. Breath sounds are clear bilaterally, distant no rales rhonchi wheezes auscultated. HEART: Shows S1, S2 clear. No murmurs auscultated. ABDOMEN: Soft, nontender, nondistended, obese. No palpable organomegaly is noted. No rebound or guarding demonstrated. BACK: Shows spine grossly in the midline. Normal-appearing cervical lordotic curvature. There is slightly increased thoracic kyphosis, some minor flattening of the lumbar lordotic curvature. Lumbar paraspinous muscles show symmetrical on inspection, on palpation shows some moderate tenderness diffusely throughout the upper, middle and lower distribution of the paraspinous muscles without specific trigger points, without radiation of pain. The patient has good rotational motion of the lumbar spine, both laterally as well as extension and flexion without significant difficulty. No tenderness over the spinous processes, sacrum or sacroiliac regions. EXTREMITIES: Lower extremities show deep tendon reflexes 1+ in the patellar and tendo calcaneus tendons. Motor exam is 5 on a scale of 5 with right dorsiflexion, extension, quadriceps and hamstring flexion and 4/5 on the left. Peripheral pulses are 1+ posterior tibial. No peripheral edema is noted bilaterally. Lower extremities are warm and dry to touch, equal in color and appearance. SKIN: Shows warm and dry, good turgor. No edema. No sores, rashes or bruising throughout. Procedure: Procedure: Options were discussed with patient. Patient chart reviews her current medication regimen updated current view systems updated today as well. We will preauthorize patient for lumbar epidural steroid injection she did very well with these previously and the pain is returning significant radicular fashion following L4-5 dermatomal distribution in the left leg. Patient continue with stretching strength exercises the meantime as well as oral analgesics. Also will call in a Medrol Dosepak with instructions side effects discussed with the medication. In meantime, patient will continue with stretching think exercise as well as walking daily as tolerated. Medication Injected: Med Injected: None Condition at Discharge: Condition at Discharge: Condition at discharge is stable. NING STUART MD Feb 14, 2021 11:48
== END | disposition home or self-care (01) ==
LOC: PNCL 10:14
PROVIDERS: ATTEND Anesthesiology
DX: M51.16 Intervertebral disc disorders with radiculopathy, lumbar region (principal); M48.061 Spinal stenosis, lumbar region without neurogenic claudication; I10 Essential (primary) hypertension; M19.90 Unspecified osteoarthritis, unspecified site; Z79.899 Other long term (current) drug therapy
CPT/HCPCS: 99212; G0463

== ENCOUNTER → 2021-03-01 | Outpatient (CLI) | payer OTHER ==
[2015-12-15 07:57] VITALS: BP 177/73
[~2021-03-01] MED LIST changes: +IOHEXOL 180 MG/ML 10 ML VIAL. ONE; +methylPREDNISolone ACETATE 40 MG/ML VIAL. ONE; +methylPREDNISolone ACETATE 80 MG/ML VIAL. ONE
--- NOTE | 2021-03-01 10:52 | PDOC4 ---
Procedure Note: ICD 10 Code: ICD 10 Code: M54.16 M51.36 M4 8.06 Procedure Note: Patient was consented for lumbar epidural steroid injection with fluoroscopic guidance. Risks were discussed including but not limited to: Bleeding, infection, possibility of epidural hematoma and subsequent neurological compromise, dural puncture, headaches, spinal cord and/or nerve damage, side effects of steroid medication, and poor results regarding pain control. Patient understands and wished to proceed. Procedure is lumbar epidural steroid injection under local anesthetic using monet rile prep and drape at the L4-5 level using C-arm fluoroscopic guidance in both AP and lateral views medications injected is 120 mg Depo-Medrol +10mL preservative-free normal saline and 2 mL contrast- condition at discharge is stable patient tolerated procedure well had no complications. NING STUART MD Mar 01, 2021 10:52
--- NOTE | 2021-03-01 10:52 | PDOC ---
Progress Note - Pain Clinic Date of Service: DOS: DATE: 03/01/21 TIME: 10:48 Diagnosis: Dx: Lumbar radiculopathy with lumbar degenerative disease lumbar spinal stenosis Diabetes type 2 History or Present Illness: HPI: 66-year-old female returns for follow-up status post lumbar epidural steroid injection x2 with a very good results about 50% improvement overall pain returning however in the low back and left lower extremity although her pain now is more on the right side patient reports nutritionally left-sided been much w orse but now her right side is becoming much more noticeable patient reports pain in the posterior gluteus posterior lateral thigh lateral anterior thigh anteromedial thigh on the right side greater than left patient reports her left side is been doing much better after last visit patient reports pain now in the low back and the right is a 9 on scale 10 is worst average and least is a 9 today patient reported can be severe at times worse with walking standing patient been working extended hours recently reports this has exacerbated the pain as well. Patient reports no bowel or bladder incontinence. Patient has been watching her blood sugars closely as we have advised her to do so after the injections reports it has been fairly well in control with some elevation only over the first 2 to 3 days following the injection. Patient is following up with her primary care physician regarding her Metformin that she takes twice daily and the blood sugar as it has been higher than normal by her reports, but only for the last few days. Physical Exam: VS: Blood pressure is 161/85 pulse 70 respirations 18 0 F height is 5 feet 2 inches weight is 309 pounds. PE: PHYSICAL EXAMINATION: GENERAL: The patient is awake, alert, oriented, appropriate, very pleasant in demeanor HEENT: Shows normocephalic, atraumatic. Extraocular movements are intact and symmetrical. Oral cavity: Mucous membranes moist and pink. Dentition is intact. NECK: Shows anterior throat supple without palpable lymphadenopathy noted. Swallow reflex symmetrical. CHEST: Shows normal on inspection. Breath sounds are clear bilaterally. HEART: Shows S1, S2 clear. No murmurs auscultated. ABDOMEN: Soft, nontender, nondistended. No palpable organomegaly is noted. BACK: Shows spine grossly in the midline. Normal-appearing cervical lordotic curvature. There is increased thoracic kyphosis, some flattening of the lumbar lordotic curvature. Lumbar paraspinous muscles show symmetrical on inspection, on palpation shows some moderate tenderness diffusely throughout the upper, middle and lower distribution of the paraspinous muscles without specific trigger points, without radiation of pain. The patient has good rotational motion of the lumbar spine, both laterally as well as extension and flexion without significant difficulty. EXTREMITIES: Lower extremities show deep tendon reflexes 1+ in the patellar and tendo calcaneus tendons. Motor exam is 5 on a scale of 5 with right dorsiflexion, extension, quadriceps and hamstring flexion and 4/5 on the left. Peripheral pulses are 1+ posterior tibial. No peripheral edema is noted bilaterally. Lower extremities are warm and dry to touch, equal in color and appearance. SKIN: Shows warm and dry, good turgor. No edema. No sores, rashes or bruising throughout. Procedure: Procedure: Options were discussed with patient. Patient's old chart was viewed as her current medication regimen updated current review of systems updated today as well. We will proceed with lumbar epidural steroid injection today with fluoroscopic guidance. Risks were discussed including but not limited to: Bleeding, infection, possibility of epidural hematoma and subsequent neurological compromise, dural puncture, headaches, spinal cord and/or nerve damage, side effects of steroid medication, and poor results regarding pain control. Patient understands and wished to proceed. Patient will return to clinic in approximate 2 weeks for follow-up, was counseled as return appointment, activity level, and side effect to be aware of. Medication Injected: Med Injected: Procedure is lumbar epidural steroid injection under local anesthetic using sterile prep and drape at the L4-5 level using C-arm fluoroscopic guidance in both AP and lateral views medications injected is 120 mg Depo-Medrol +10mL preservative-free normal saline and 2 mL contrast- condition at discharge is stable patient tolerated procedure well had no complications. Condition at Discharge: Condition at Discharge: Condition at discharge stable, patient Sandro the procedure well and had no complications. NING STUART MD Mar 01, 2021 10:52
== END | disposition home or self-care (01) ==
LOC: PNCL 09:55
PROVIDERS: ATTEND Anesthesiology
DX: M51.16 Intervertebral disc disorders with radiculopathy, lumbar region (principal); M48.061 Spinal stenosis, lumbar region without neurogenic claudication; E11.9 Type 2 diabetes mellitus without complications; I10 Essential (primary) hypertension; M19.90 Unspecified osteoarthritis, unspecified site; Z79.84 Long term (current) use of oral hypoglycemic drugs; Z79.899 Other long term (current) drug therapy
CPT/HCPCS: 62323; J1030; J1040; Q9965